=== PATIENT | male | born 1985 | race Caucasian/White ===

== ENCOUNTER → 2016-07-27 | Outpatient (CLI) | payer BC, OTHER ==
[~2016-07-27] MED LIST: ZFRODT4 SL
[2016-07-27 19:16] LABS: CHOLESTEROL/HDL RATIO 3.9
== END ==
LOC: C.LABBFT 14:31
PROVIDERS: ATTEND Internal Medicine
DX: Z13.6 Encounter for screening for cardiovascular disorders (principal)